=== PATIENT | female | born 1965 | race Caucasian/White ===

== ENCOUNTER 2016-03-16 22:39 | Emergency (ER) | payer BC ==
--- NOTE | 2016-03-16 22:51 | PDOC ---
History of Present Illness - General History Source: Patient Exam Limitations: No Limitations - History of Present Illness Initial Comments: 03/17/16 01:05 The patient is a 50-year-old female, with no significant past medical history, who presents to the emergency department s/p syncopal episode earlier tonight. The patient reports she visited a friend at the hospital earlier today. After the hospital she went home and ate dinner a little later than usual. After her meal she reports a sharp pain in her RLQ. She denies any associated dysuria, hematuria, frequency, or urgency. She reports diaphoresis, feeling warm, nausea , vomiting, and diarrhea. She reports syncopizing secondary to symptoms. As per , the patient was down for approximately 5 minutes. Once the patient began to regain consciousness, she states her tried to talk to her and she understood what he was saying, but was unable to respond. She reports generalized weakness, but is feeling better now. Earlier today she reports she had coffee and yogurt for breakfast, as well as a [employer] hamburger for lunch. She reports her ate the same dinner as she did, but is asymptomatic. She denies any recent travel or any sick contacts at work. She is up to date with her flu vaccine. The patient denies any recent travel. The patient denies any sick contacts. The patient denies fever, cough, headache, or dizziness. Allergies: Penicillins Past Surgical History: Hysterectomy Social History: Non-smoker. Denies drug use. Social ETOH consumer. <Ramy Patterson - Last Filed: 03/17/16 01:51> <Liz Rose - Last Filed: 03/18/16 02:55> - General Stated Complaint: FELL/SYNCOPE Time Seen by Provider: 03/16/16 22:50 Past History <Ramy Patterson - Last Filed: 03/17/16 01:51> <Liz Rose - Last Filed: 03/18/16 02:55> - Past Medical History Allergies/Adverse Reactions: Allergies Allergy/AdvReac Type Severity Reaction Status Date / Time Penicillins Allergy Verified 03/16/16 22:48 Review of Systems - Review of Systems Able to Perform ROS?: Yes Comments:: 03/17/16 01:05 GENERAL/CONSTITUTIONAL: +Weakness No fever or chills. HEAD, EYES, EARS, NOSE AND THROAT: No change in vision. No ear pain or discharge. No sore throat. CARDIOVASCULAR: No chest pain or shortness of breath. RESPIRATORY: No cough, wheezing, or hemoptysis. GASTROINTESTINAL:+Nausea,+vomiting,+ diarrhea No constipation. GENITOURINARY: +RLQ pain. No dysuria, frequency, or change in urination. MUSCULOSKELETAL: No joint or muscle swelling or pain. No neck or back pain. SKIN: No rash NEUROLOGIC: +Loss of consciousness. No headache, vertigo, or change in strength/ sensation. ENDOCRINE: No increased thirst. No abnormal weight change. HEMATOLOGIC/LYMPHATIC: No anemia, easy bleeding, or history of blood clots. ALLERGIC/IMMUNOLOGIC: No hives or skin allergy. <Ramy Patterson - Last Filed: 03/17/16 01:51> *Physical Exam - Vital Signs Last Vital Signs Temp Pulse Resp BP Pulse Ox 97.6 F 62 18 113/62 99 03/16/16 22:54 03/16/16 22:54 03/16/16 22:54 03/16/16 22:54 03/16/16 22:54 - Physical Exam Comments: 03/17/16 01:05 GENERAL: Awake, alert, and fully oriented, in no acute distress HEAD: No signs of trauma EYES: PERRLA, EOMI, sclera anicteric, conjunctiva clear ENT: Auricles normal inspection, hearing grossly normal, nares patent, oropharynx clear without exudates. Moist mucosa NECK: Normal ROM, supple, no lymphadenopathy, JVD, or masses LUNGS: Breath sounds equal, clear to auscultation bilaterally. No wheezes, and no crackles HEART: Regular rate and rhythm, normal S1 and S2, no murmurs, rubs or gallops ABDOMEN: +Gassy. +Mild diffuse tenderness in the lower quadrants. No guarding, no rebound. No masses EXTREMITIES: Normal range of motion, no edema. No clubbing or cyanosis. No cords, erythema, or tenderness. No flank pain. NEUROLOGICAL: Cranial nerves II through XII grossly intact. Normal speech, normal gait SKIN: Warm, Dry, normal turgor, no rashes or lesions noted. <Ramy Patterson - Last Filed: 03/17/16 01:51> Heart Score/ECG Review - ECG Impressions Comment:: 03/17/16 01:33 Vent. Rate: 57 bpm IMPRESSION: Sinus Bradycardia. Cannot rule out anterior infarct. <PattersonRamy - Last Filed: 03/17/16 01:51> ED Treatment Course - LABORATORY CBC & Chemistry Diagram: 03/16/16 11:41 03/16/16 11:41 - ADDITIONAL ORDERS Additional order review: Laboratory Results 03/16/16 03/16/16 11:41 11:41 INR 1.00 Sodium 143 Potassium 4.1 Chloride 102 Carbon Dioxide 30 Anion Gap 11 BUN 23 H Creatinine 0.8 Creat Clearance w eGFR > 60 Random Glucose 124 H Calcium 9.0 Total Bilirubin 0.5 AST 17 ALT 29 Alkaline Phosphatase 52 Total Protein 6.9 Albumin 4.0 03/16/16 11:41 RBC 4.65 MCV 85.2 MCHC 33.0 RDW 13.4 MPV 9.6 Neutrophils % 68.3 Lymphocytes % 24.6 Monocytes % 4.6 Eosinophils % 1.1 Basophils % 1.4 - RADIOLOGY Radiograph Interpretation: 03/17/16 01:51 EXAM: Abdomen CT INTERPRETED BY: Dr. Luevano REVIEWED BY: Dr. Rose IMPRESSION: No definite acute pathology. Patient may have only had a partial hysterectomy. <Ramy Patterson - Last Filed: 03/17/16 01:51> - LABORATORY CBC & Chemistry Diagram: 03/16/16 11:41 03/16/16 11:41 <Liz Rose - Last Filed: 03/18/16 02:55> Medical Decision Making - Medical Decision Making 03/17/16 01:44 Patient Name: Lauro Reyes THIS IS A PRELIMINARYREPORT FROM [facility] EXAM: CT abdomen and pelvis without contrast IMAGES: 510 INDICATION: Vomiting and diarrhea. Status post hysterectomy. DATE OF SERVICE: 2016-03-17 01:00:12.0 COMPARISON: none FINDINGS: Lung bases are clear. The visualized cardiac chambers are normal size and configuration. Normal unenhanced liver, gallbladder, pancreas, spleen, adrenal glands and kidneys. The stomach and abdominal small and large bowel are normal. There is no aortic aneurysm. There is no significant retroperitoneal lymphadenopathy. The pelvic small and large bowel are normal. The appendix is normal . The uterus and adnexal structures appear normal, and the patient has only had a partial hysterectomy Urinary bladder is unremarkable. There is no pelvic free fluid. No discrete pelvic lymphadenopathy is identified. IMPRESSION: No definite acute pathology. Patient may have only had a partial hysterectomy. THIS DOCUMENT HAS BEEN ELECTRONICALLY SIGNED 03/18/16 02:51 Pt states that she fell out today at home; states that she was visiting a friend in the hospital all day and she had very little to eat today; also she complains of RLQ pain and she states that secondary to pain and wekaness she had a vasovagal syncope at home. Labs normal, exam normal. CT abd/pelvis normal. She has no complaints and she will be discharged home <Liz Rose - Last Filed: 03/18/16 02:55> *DC/Admit/Observation/Transfer - Attestations Scribe Attestion: 03/17/16 01:06 Documentation prepared by Ramy Patterson, acting as medical management specialist for Liz Rose MD. <Ramy Patterson - Last Filed: 03/17/16 01:51> - Discharge Dispostion Admit: No <Liz Rose - Last Filed: 03/18/16 02:55> Diagnosis at time of Disposition: Gastroenteritis, Vasovagal episode - Discharge Dispostion Disposition: HOME Condition at time of disposition: Improved - Referrals Referrals: Jacy Bryant [Primary Care Provider] - - Patient Instructions Printed Discharge Instructions: DI for Syncope in Adults (Fainting), DI for Viral Gastroenteritis -- Adult, Gastroenteritis Diet - Post Discharge Activity Work/School Note: Back to Work
[2016-03-16 22:55] VITALS: TEMP 97.6; BMI 26.4
[2016-03-16 23:59] LABS: BASOPHIL 1.4 % (0-2.0); EOSINOPHIL 1.1 % (0-4.5); MCH 28.1 pg (25.7-33.7); MEAN CELL VOLUME 85.2 fl (80-96); MEAN PLT VOLUME 9.6 fl (7.5-11.1); NEUTROPHILS 68.3 % (42.8-82.8); PLATELET COUNT 177 K/MM3 (134-434); RDW 13.4 % (11.6-15.6); WHITE BLOOD COUNT 7.5 K/mm3 (4.0-10.0)
[2016-03-17 00:23] LABS: ALK PHOS 52 U/L (45-117); ANION GAP 11 (8-16); BILIRUBIN,TOTAL 0.5 mg/dL (0.2-1.0); CO2 30 mmol/L (21-32); CREATININE 0.8 mg/dL (0.55-1.02); GLUCOSE,RANDOM 124 mg/dL (74-106); SGOT/AST 17 U/L (15-37); SGPT/ALT 29 U/L (12-78); TOT PROT 6.9 g/dl (6.4-8.2)
[2016-03-17 01:06] LABS: TROPONIN I < 0.02 ng/ml (0.00-0.05)
[2016-03-17] MEDS ORDERED: SODIUM CHLORIDE 0.9% 500 ML INFUS.BAG IV ONE (01:45)
[2016-03-17 03:09] VITALS: BP 110/89; PULSE 84
--- NOTE | 2016-03-18 23:43 | EKG ---
Test Reason : Blood Pressure : / mmHG Vent. Rate : 057 BPM Atrial Rate : 057 BPM P-R Int : 126 ms QRS Dur : 106 ms QT Int : 434 ms P-R-T Axes : 052 079 044 degrees QTc Int : 422 ms SINUS BRADYCARDIA CANNOT RULE OUT ANTERIOR INFARCT , AGE UNDETERMINED ABNORMAL ECG WHEN COMPARED WITH ECG OF 29-JAN-2007 14:33, NO SIGNIFICANT CHANGE WAS FOUND Confirmed by DEB MAHER MD ([id number]) on 03/18/2016 11:43:17 PM Referred By: Confirmed By:DEB MAHER MD
== END 2016-03-17 03:13 | disposition home or self-care (01) ==
LOC: JER 22:39
DX: K52.9 Noninfective gastroenteritis and colitis, unspecified (principal); R55 Syncope and collapse; W19.XXXA Unspecified fall, initial encounter; Y93.89 Activity, other specified; Y92.038 Other place in apartment as the place of occurrence of the external cause
CPT/HCPCS: 36415; 72192-TC; 74150-TC; 80053; 82550; 84484; 85025; 85610; 93005; 93010; 99284-25

== ENCOUNTER → 2022-02-20 | Day surgery (SDC) | payer SELFPAY ==
[2022-02-13 13:49] VITALS: BMI 29.0
== END | disposition home or self-care (01) ==
LOC: FASU 07:31
PROVIDERS: ATTEND Ophthalmology
PROC: 080R0ZZ Alteration of Left Lower Eyelid, Open Approach (ICD-10-PCS; principal; 2022-02-20)
PROC: 080Q0ZZ Alteration of Right Lower Eyelid, Open Approach (ICD-10-PCS; 2022-02-20)
DX: Z53.8 Procedure and treatment not carried out for other reasons (principal)

== ENCOUNTER 2022-03-06 06:16 | Day surgery (SDC) | payer SELFPAY ==
[2022-02-27 18:22] VITALS: BMI 29.0
[2022-03-06] MEDS ORDERED: ceFAZolin SODIUM 1 GM VIAL ONE (07:18)
[2022-03-06] MEDS ORDERED: TETRACAINE 0.5% OPHTH SOLN 2 ML BOTTLE ONE (07:19)
[2022-03-06] MEDS ORDERED: LIDOCAINE 1%-EPI 1:100,000 30 ML MDV IJ ONE (07:19)
[2022-03-06] MEDS ORDERED: ERYTHROMYCIN 0.5% OPHTHALMIC OINTMENT 3.5 GM TUBE ONE (07:19)
[2022-03-06] MEDS ORDERED: POVIDONE-IODINE 5% OPHTHALMIC PREP 30 ML SOLUTION ONE (07:19)
[2022-03-06] MEDS ORDERED: PROPOFOL 20 ML ONE ×2 (07:26→08:46)
[2022-03-06] MEDS ORDERED: MIDAZOLAM HCL 2 MG/2 ML SINGLE DOSE VIAL ONE (07:26)
[2022-03-06] MEDS ORDERED: CLINDAMYCIN PHOSPHATE 900 MG/6 ML VIAL IVPB ONE (07:27)
[2022-03-06] MEDS ORDERED: GENTAMICIN SO4 80 MG/2 ML VIAL ONE (07:34)
[2022-03-06] MEDS ORDERED: ONDANSETRON 4 MG/2 ML VIAL ONE ×2 (08:01→11:36)
[2022-03-06] MEDS ORDERED: DEXAMETHASONE SOD PHOSPHATE 4 MG/1 ML VIAL ONE (08:01)
[2022-03-06] MEDS ORDERED: oxyCODONE HCL 5 MG TABLET PO PRN (10:57)
[2022-03-06] MEDS ORDERED: ONDANSETRON 4 MG/2 ML VIAL IVPUSH PRN (10:57)
[2022-03-06] MEDS ORDERED: LACTATED RINGERS SOLUTION 1,000 ML IV SCH (11:00)
[2022-03-06] MEDS ORDERED: ACETAMINOPHEN 1000 MG/100 ML BAG IVPB ONE (11:25)
[2022-03-06] MEDS ORDERED: ACETAMINOPHEN 500 MG TABLET (FP) ONE (11:26)
[2022-03-06] MEDS ORDERED: ACETAMINOPHEN INJECTION 100 ML IVPB ONE (11:36)
[2022-03-06 12:06] VITALS: RESP 16
[2022-03-06 12:07] VITALS: PULSE 87
[2022-03-06 12:33] VITALS: BP 101/60; TEMP 97.8
== END 2022-03-06 12:41 | disposition home or self-care (01) ==
LOC: FASU 06:16
PROVIDERS: ATTEND Ophthalmology
CPT/HCPCS: 94760